=== PATIENT | male | born 1960 | race Caucasian/White ===

== ENCOUNTER 2018-03-17 11:06 | Emergency (ER) | payer OTHER, BC ==
[2018-03-17] MEDS ORDERED: HYDROmorphone 0.5 MG/0.5 ML SYRINGE IVPUSH ONE (11:23)
[2018-03-17] MEDS ORDERED: Cyclobenzaprine 10 MG Tab PO ONE (11:24)
[2018-03-17] MEDS ORDERED: HYDROmorphone 0.5 MG/0.5 ML SYRINGE IM ONE (11:25)
--- NOTE | 2018-03-17 11:30 | EDM.PDOC ---
ED HPI GENERAL MEDICAL PROBLEM - General Chief Complaint: Chest Pain Stated Complaint: CHEST PAIN Time Seen by Provider: 03/17/18 11:18 Source of Information: Reports: Patient History Limitations: Reports: No Limitations - History of Present Illness INITIAL COMMENTS - FREE TEXT/NARRATIVE: Patient is a 58 y/o female who presents to the E.D. complaining of muscle spasms to the left and lateral chest that comes and goes. Patient states the pain came on while working the [employer] line at [employer]. 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 Patient states he lifts routinely 15lbs multiple times a day. States the spasms come and go. Hes had no recent trauma associating the pain. Pain is intermittent comes and goes. He denies fever, sob, n/v, abdominal pain, dysuria, back pain, n/t, or any additional complaints. He has no PMH and currently takes no heart medications. Patient smokes 3/4 ppd. Alcohol use is minimal. Denies rec drug use. Dad has a history of heart disease. Treatments MOTION PICTURE DIRECTOR: Reports: Other (see below) Other Treatments MOTION PICTURE DIRECTOR: none Bilateral Chest Pain Score (Numeric/FACES): 7 - Related Data Allergies Allergy/AdvReac Type Severity Reaction Status Date / Time No Known Allergies Allergy Verified 03/17/18 11:18 Home Meds: Home Meds Cyclobenzaprine [Flexeril] 10 mg PO TID PRN #21 tab 03/17/18 [Rx] ED ROS GENERAL - Review of Systems Review Of Systems: ROS reveals no pertinent complaints other than HPI. ED EXAM, GENERAL - Physical Exam Exam: See Below Exam Limited By: No Limitations General Appearance: Alert, WD/WN, Mild Distress, Other (intermittent spasms to the left/right chestwall. ) Eye Exam: Bilateral Eye: PERRL Ears: Hearing Grossly Normal Nose: Normal Inspection Throat/Mouth: Normal Voice Head: Atraumatic, Normocephalic Neck: Normal Inspection, Supple Respiratory/Chest: No Respiratory Distress, Lungs Clear, Normal Breath Sounds, No Accessory Muscle Use, Chest Non-Tender, Other (With any type of movements and resistance to the upper extremities patient develops spasms to the lateral chest. ) Cardiovascular: Normal Peripheral Pulses, Regular Rate, Rhythm, No Murmur Peripheral Pulses: 4+: Radial (L), Radial (R) GI/Abdominal: Normal Bowel Sounds, Soft, Non-Tender, No Organomegaly, No Distention Back Exam: Normal Inspection Extremities: Normal Inspection, Normal Range of Motion, Non-Tender, No Pedal Edema Neurological: Alert, Oriented, CN II-XII Intact, Normal Cognition, No Motor/ Sensory Deficits Psychiatric: Normal Affect, Normal Mood Skin Exam: Warm, Dry, Intact, Normal Color Course - Vital Signs Last Recorded V/S: Last Vital Signs Temp 98.4 F 03/17/18 11:14 Pulse 68 03/17/18 12:46 Resp 16 03/17/18 12:46 BP 133/86 03/17/18 12:46 Pulse Ox 100 03/17/18 12:46 - Orders/Labs/Meds Meds: Medications Discontinued Medications Generic Name Dose Route Start Last Admin Trade Name Yolanda PRN Reason Stop Dose Admin Cyclobenzaprine HCl 10 mg 03/17/18 11:24 03/17/18 11:35 Flexeril PO 03/17/18 11:25 10 mg ONETIME ONE Administration Hydromorphone HCl 0.5 mg 03/17/18 11:23 Dilaudid IVPUSH 03/17/18 11:24 ONETIME ONE Hydromorphone HCl 0.5 mg 03/17/18 11:25 03/17/18 11:35 Dilaudid IM 03/17/18 11:26 0.5 mg ONETIME ONE Administration - Re-Assessments/Exams Free Text/Narrative Re-Assessment/Exam: On examination patients having intermittent spasming to the chart lateral aspect of the chest bilaterally. This is worsen with any kind resistance on examination to the upper extremities. This came on while at work working in a semireclined rotating left to right lifting 15 pound boxes repeatedly. This progressively got worse since onset. He personally has no history of cardiac disease and/or history of spontaneous pneumothorax. Vital signs are stable. I will order Dilaudid 0.5 mg IM and also Flexeril 10 mg by mouth. CXR: No acute finding noted. Reviewed with Dr. Espino. Final interpretation pending. EKG: Sinus rhythm at rate of 80, pr interval 134, QTc 425. No acute ST changes noted. 03/17/18 12:15 Reassessment, patients states spasms have significantly improved with the above therapies. Will discharge patient home with instructions as documented. Departure - Departure Time of Disposition: 12:28 Disposition: Home, Self-Care 01 Condition: Good Clinical Impression: Acute chest wall pain, Muscle spasm Prescriptions: Cyclobenzaprine [Flexeril] 10 mg PO TID PRN #21 tab PRN Reason: Spasms Instructions: Chest Wall Pain, [id number] Referrals: PCP,Unknown [Ordering Only Provider] - Forms: ED Department Discharge, ED Return to Work/School Form Additional Instructions: Take the flexeril 1 tab three times a day as needed for muscle spasms. May take tylenol and ibuprofen in alternating fashion for pain as well. Refrain from any activities that cause worsening pain. Please follow up with her PCP as needed for reevaluation. Return to the ED if you develop any new or worsening symptoms.
--- NOTE | 2018-03-17 12:52 | CR ---
Chest: Frontal view of the chest was obtained. Comparison: No prior study. Heart size is normal. Tortuous thoracic aorta is seen. Lungs are clear but hyperinflated. Bony structures are grossly intact. Old healed left sided rib fracture is incidentally noted. Impression: 1. Emphysematous change and other incidental findings. Nothing acute is seen. Diagnostic code #2
== END 2018-03-17 12:43 | disposition home or self-care (01) ==
LOC: JD.ED 11:06
DX: M62.838 Other muscle spasm (principal); R07.89 Other chest pain
CPT/HCPCS: 71045; 93005; 96372; 99285; A9270; J1170

== ENCOUNTER 2020-09-14 11:34 | Emergency (ER) | payer SELFPAY ==
[2020-09-14] MEDS ORDERED: Sodium Chloride 0.9% 10 ML Syringe FLUSH PRN (11:35)
--- NOTE | 2020-09-14 12:39 | CT ---
PROCEDURE INFORMATION: Exam: CT Head Without Contrast Exam date and time: 09/14/2020 11:31 AM Age: 60 years old Clinical indication: Weakness, extremity; Left; Additional info: CVA TECHNIQUE: Imaging protocol: Computed tomography of the head without contrast. Other technique: STROKE PROTOCOL was implemented. COMPARISON: No relevant prior studies available. FINDINGS: Brain: No acute brain parenchymal abnormality. No intracranial hemorrhage. No extraaxial fluid collections. Cerebral ventricles: No hydrocephalus. Bones/joints: No calvarial fracture. Paranasal sinuses: The visualized paranasal sinuses are aerated. Mastoid air cells: Minimal right mastoid air cell effusions. The left mastoid air cells are aerated. Soft tissues: No acute soft tissue abnormality. IMPRESSION: No acute intracranial abnormality. ASSESSMENT: ASPECTS ([place] Stroke Program Early CT Score) is 10. Thank you for allowing us to participate in the care of your patient. Dictated and Authenticated by: Nicola Real MD 09/14/2020 12:49 PM Central Time ([place] & [place]) [email or web address]
--- NOTE | 2020-09-14 13:06 | EDM.PDOC ---
ED HPI GENERAL MEDICAL PROBLEM - General Chief Complaint: Neuro Symptoms/Deficits Stated Complaint: [facility] Time Seen by Provider: 09/14/20 11:35 Source of Information: Reports: Patient, EMS, Provider History Limitations: Reports: No Limitations - History of Present Illness INITIAL COMMENTS - FREE TEXT/NARRATIVE: The patient presents by [facility] for stroke like symptoms. The patient said after he woke up at 6am and felt fine. At around 11am he started having numbness to the right side of face. He said it felt like he was at the dentist and got some novocaine. He is at the residential in [facility]. He then tried eating lunch and he said it was hard to chew. He then talked to the nurse and she called 911 to come to the ER for assessment. He says it was his right face that felt numb. When EMS arrived the assessed him and it appeared he had some left arm weakness. That was resolved when he came here. He has no history of stroke or DE. He does have a history of COPD. This has never happened to him before. He quit smoking years ago. Onset: Gradual Duration: Hour(s): Location: Reports: Face Quality: Reports: Other (Numbness) Severity: Mild Improves with: Reports: None Worsens with: Reports: None Associated Symptoms: Reports: No Other Symptoms - Related Data Allergies Allergy/AdvReac Type Severity Reaction Status Date / Time No Known Allergies Allergy Verified 09/14/20 11:47 Home Meds: Home Meds Carboxymethylcellulose Sodium [Artificial Tears] 15 ml OP QID PRN #1 bottle 09/14/20 [Rx] Tiotropium [place] [Spiriva Respimat] 2 inh INH DAILY 09/14/20 [History] hydroCHLOROthiazide [Hydrochlorothiazide] 12.5 mg PO DAILY 09/14/20 [History] predniSONE [Prednisone] 60 mg PO DAILY #21 tablet 09/14/20 [Rx] Past Medical History HEENT History: Reports: Impaired Vision Cardiovascular History: Reports: Hypertension Respiratory History: Reports: COPD - Past Surgical History Musculoskeletal Surgical History: Reports: Other (See Below) Other Musculoskeletal Surgeries/Procedures:: Surgery on torn achilles. Social & Family History - Tobacco Use Tobacco Use Status *Q: Former Tobacco User Used Tobacco, but Quit: Yes Month/Year Tobacco Last Used: 05/15 - Caffeine Use Caffeine Use: Reports: Coffee - Recreational Drug Use Recreational Drug Use: No ED ROS GENERAL - Review of Systems Review Of Systems: See Below Constitutional: Reports: No Symptoms HEENT: Reports: Other (Numbness right side of his face) Respiratory: Reports: No Symptoms Cardiovascular: Reports: No Symptoms Endocrine: Reports: No Symptoms GI/Abdominal: Reports: No Symptoms : Reports: No Symptoms Musculoskeletal: Reports: Other (Mild numbness right face) ED EXAM, NEURO - Physical Exam Exam: See Below Exam Limited By: No Limitations General Appearance: Alert, No Apparent Distress Ears: Normal External Exam Nose: Normal Inspection Head Exam: Atraumatic, Normocephalic Neck: Normal Inspection, Supple, Non-Tender Respiratory/Chest: No Respiratory Distress, Lungs Clear, Normal Breath Sounds Cardiovascular: Regular Rate, Rhythm, No Edema, No Murmur GI/Abdominal: Soft, Non-Tender, No Organomegaly, No Mass Neurological: Alert, No Motor/Sensory Deficits, Oriented x 3 #1 Interpretation EKG Date: 09/14/20 Time: 11:48 Rhythm: NSR Rate (Beats/Min): 84 Sharon: Normal P-Wave: Present QRS: Normal ST-T: Normal QT: Normal Course - Vital Signs Last Recorded V/S: Last Vital Signs Temp 97.4 F 09/14/20 11:42 Pulse 88 09/14/20 11:42 Resp 16 09/14/20 11:42 BP 169/110 H 09/14/20 11:42 Pulse Ox 100 09/14/20 11:42 - Orders/Labs/Meds Orders: Active Orders 24 hr Category Date Time Status Cardiac Monitoring [RC] . DIRECTED Care 09/14/20 11:35 Active EKG Documentation Completion [RC] STAT Care 09/14/20 11:36 Active Peripheral IV Care [RC] . DIRECTED Care 09/14/20 11:36 Active Sodium Chloride 0.9% [Saline Flush] Med 09/14/20 11:35 Active 10 ml FLUSH ASDIRECTED PRN Peripheral IV Insertion Adult [OM.PC] Stat Oth 09/14/20 11:35 Ordered Medication Orders Sodium Chloride (Saline Flush) 10 ml FLUSH ASDIRECTED PRN PRN Reason: Keep Vein Open Last Admin: 09/14/20 11:52 Dose: 10 ml Documented by: LIZ Labs: Laboratory Tests 09/14/20 09/14/20 09/14/20 Range/Units 11:44 11:44 11:44 WBC 8.28 (4.23-9.07) K/mm3 RBC 4.57 L (4.63-6.08) M/mm3 Hgb 14.2 (13.7-17.5) gm/dl Hct 43.0 (40.1-51.0) % MCV 94.1 H (79.0-92.2) fl MCH 31.1 (25.7-32.2) pg MCHC 33.0 (32.2-35.5) g/dl RDW Std Deviation 42.9 (35.1-43.9) fL Plt Count 269 (163-337) K/mm3 MPV 8.3 L (9.4-12.3) fl Neut % (Auto) 61.7 (34.0-67.9) % Lymph % (Auto) 26.3 (21.8-53.1) % [place] % (Auto) 8.1 (5.3-12.2) % Eos % (Auto) 3.1 (0.8-7.0) Baso % (Auto) 0.4 (0.1-1.2) % Neut # (Auto) 5.11 (1.78-5.38) K/mm3 Lymph # (Auto) 2.18 (1.32-3.57) K/mm3 [place] # (Auto) 0.67 (0.30-0.82) K/mm3 Eos # (Auto) 0.26 (0.04-0.54) K/mm3 Baso # (Auto) 0.03 (0.01-0.08) K/mm3 PT 10.9 (9.7-12.0) SECONDS INR 1.02 APTT 28.2 (21.7-31.4) SECONDS Sodium 141 (136-145) mEq/L Potassium 3.4 L (3.5-5.1) mEq/L Chloride 103 (98-107) mEq/L Carbon Dioxide 30 (21-32) mEq/L Anion Gap 11.4 (5-15) BUN 16 (7-18) mg/dL Creatinine 1.1 (0.7-1.3) mg/dL Est Cr Clr Drug Dosing 67.60 mL/min Estimated GFR (MDRD) > 60 (>60) mL/min BUN/Creatinine Ratio 14.5 (14-18) Glucose 109 H (74-106) mg/dL Calcium 9.2 (8.5-10.1) mg/dL Magnesium 1.7 L (1.8-2.4) mg/dl Total Bilirubin 0.3 (0.2-1.0) mg/dL AST 8 L (15-37) U/L ALT 27 (16-63) U/L Alkaline Phosphatase 90 (46-116) U/L Troponin I < 0.017 (0.00-0.056) ng/mL Total Protein 7.0 (6.4-8.2) g/dl Albumin 3.5 (3.4-5.0) g/dl Globulin 3.5 gm/dL Albumin/Globulin Ratio 1.0 (1-2) Meds: Medications Generic Name Dose Route Start Last Admin Trade Name Freq PRN Reason Stop Dose Admin Sodium Chloride 10 ml 09/14/20 11:35 09/14/20 11:52 Saline Flush FLUSH 10 ml ASDIRECTED PRN Administration Keep Vein Open - Re-Assessments/Exams Free Text/Narrative Re-Assessment/Exam: 09/14/20 13:10 A stroke alert was called. His last time known well was 11am. 09/14/20 13:[address] of his head, EKG, and labs. His EKG shows a NSR with no acute changes. The CT of his head shows no acute intracranial abnormality. His labs look good. I was able to get a MRI of his head ordered. 09/14/20 14:19 The MRI was totally normal. 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 I will need to get him on prednisone and something to protect his eye. Departure - Departure Time of Disposition: 14:25 Disposition: Home, Self-Care 01 Condition: Good Clinical Impression: Ivy's palsy - Discharge Information *PRESCRIPTION DRUG MONITORING PROGRAM REVIEWED*: Not Applicable *COPY OF PRESCRIPTION DRUG MONITORING REPORT IN PATIENT DELMY: Not Applicable Prescriptions: predniSONE [Prednisone] 60 mg PO DAILY #21 tablet Referrals: Gavi Wharton PA-C [Primary Care Provider] - 1 Week Forms: ED Department Discharge Additional Instructions: Antonio the prednisone 60mg daily for 7 days. Use the artificial tears 4 times per day and wear an eye patch at night to protect your eye. Please return if you are worse. Sepsis Event Note (ED) - Evaluation Sepsis Screening Result: No Definite Risk - Focused Exam Vital Signs: Vital Signs Temp Pulse Resp BP Pulse Ox 09/14/20 11:42 97.4 F 88 16 169/110 H 100 - My Orders Last 24 Hours: My Active Orders 09/14/20 11:35 Cardiac Monitoring [RC] . DIRECTED Sodium Chloride 0.9% [Saline Flush] 10 ml FLUSH ASDIRECTED PRN Peripheral IV Insertion Adult [OM.PC] Stat 09/14/20 11:36 EKG Documentation Completion [RC] STAT Peripheral IV Care [RC] . DIRECTED - Assessment/Plan Last 24 Hours: My Active Orders 09/14/20 11:35 Cardiac Monitoring [RC] . DIRECTED Sodium Chloride 0.9% [Saline Flush] 10 ml FLUSH ASDIRECTED PRN Peripheral IV Insertion Adult [OM.PC] Stat 09/14/20 11:36 EKG Documentation Completion [RC] STAT Peripheral IV Care [RC] . DIRECTED
--- NOTE | 2020-09-14 14:09 | MR ---
PROCEDURE INFORMATION: Exam: MR Head Without Contrast Exam date and time: 09/14/2020 1:19 PM Age: 60 years old Clinical indication: Other: Left facial weakness and left arm weakness. TECHNIQUE: Imaging protocol: MR of the head without contrast. COMPARISON: CT Head wo Cont 09/14/2020 11:31 AM FINDINGS: Brain: Normal. No acute infarct. No hemorrhage. No significant white matter disease. No edema. Cerebral ventricles: Normal. No ventriculomegaly. Bones/joints: Unremarkable. Paranasal sinuses: Normal as visualized. No acute sinusitis. Mastoid air cells: Normal as visualized. No mastoid effusion. Orbits: Unremarkable. Soft tissues: Unremarkable. IMPRESSION: No acute findings. Thank you for allowing us to participate in the care of your patient. Dictated and Authenticated by: Chris Shafer MD 09/14/2020 3:08 PM Central Time ([place] & [place]) [email or web address]
== END 2020-09-14 14:45 | disposition home or self-care (01) ==
LOC: JD.ED 11:34
DX: G51.0 Bell's palsy (principal); I10 Essential (primary) hypertension; J44.9 Chronic obstructive pulmonary disease, unspecified; Z79.899 Other long term (current) drug therapy; Z87.891 Personal history of nicotine dependence
CPT/HCPCS: 36415; 70450; 70450-26; 70551; 70551-26; 80053; 83735; 84484; 85025; 85610; 85730; 93005; 93010; 99284; 99285-25

== ENCOUNTER 2023-12-22 08:32 | Emergency (ER) | payer OTHER ==
[2023-12-22] MEDS: Morphine 4 MG/ML Syringe IVPUSH ONE (10:05)
[2023-12-22] MEDS: Sodium Chloride 0.9% 10 ML Syringe FLUSH PRN (10:06)
[2023-12-22 10:07] LABS: BASOPHILS ABSOLUTE AUTO 0.1 K/mm3 (0.0-0.2); BASOPHILS PERCENT AUTO 0.6 % (0.0-1.0); EOSINOPHILS ABSOLUTE AUTO 0.2 K/mm3 (0.0-0.4); EOSINOPHILS PERCENT AUTO 2.8 % (0.0-6.0); HEMATOCRIT 41.6 % (42.0-52.0); HEMOGLOBIN 13.5 gm/dl (14.0-18.0); IMMATURE GRAN ABSOLUTE AUTO 0.04 K/mm3 (0.00-0.05); IMMATURE GRAN PERCENT AUTO 0.5 % (0.0-0.4); LYMPHOCYTES PERCENT AUTO 25.1 % (24.0-44.0); MEAN CORPUSCULAR HEMOGLOBIN 30.6 pg (28.0-32.0); MEAN CORPUSCULAR HGB CONC 32.5 g/dl (32.0-36.0); MEAN CORPUSCULAR VOLUME 94.3 fl (83.0-99.0); MEAN PLATELET VOLUME 8.2 fl (9.4-12.4); MONOCYTES ABSOLUTE AUTO 0.6 K/mm3 (0.0-0.8); MONOCYTES PERCENT AUTO 7.3 % (0.0-8.0); NEUTROPHILS PERCENT AUTO 63.7 % (41.0-71.0); PLATELET COUNT,PLT 252 K/mm3 (150-400); RED BLOOD CELL COUNT 4.41 M/mm3 (4.52-5.90)
[2023-12-22 10:22] LABS: INR 0.96; PROTHROMBIN TIME 10.3 SECONDS (9.7-12.0)
[2023-12-22 10:24] LABS: PTT,PARTIAL THROMBOPLSTIN TIME 28.6 SECONDS (21.7-31.4)
[2023-12-22 10:47] LABS: A/G RATIO 0.9 (1-2); ALBUMIN 3.4 g/dl (3.4-5.0); ANION GAP 13.1 (5-15); BILIRUBIN TOTAL 0.4 mg/dL (0.2-1.0); BUN/CREATININE RATIO 11.1 (14-18); C-REACTIVE PROTEIN 1.65 mg/dL (<0.30); CALCIUM 9.1 mg/dL (8.5-10.1); CREATININE 0.9 mg/dL (0.7-1.3); EST CRCL DRUG DOSING (CG) 76.8 mL/min; MAGNESIUM 1.7 mg/dL (1.8-2.4); POTASSIUM,K 4.1 mEq/L (3.5-5.1); PROTEIN TOTAL,TP 7.1 g/dl (6.4-8.2)
[2023-12-22] MEDS: Iopamidol 612 MG/ML 100 ML Bottle IVPUSH ONE (11:06)
[2023-12-22] MEDS ORDERED: cefTRIAXone 1 GM in Sodium Chloride 0.9% 100 ML IV ONE (12:10)
[2023-12-22] MEDS ORDERED: Clindamycin Phosphate in D5W 900 MG in Premix Bag 1 BAG IV ONE (12:12)
== END 2023-12-22 13:11 | disposition home or self-care (01) ==
LOC: JD.ED 08:32
DX: K11.21 Acute sialoadenitis (principal); I10 Essential (primary) hypertension; J44.9 Chronic obstructive pulmonary disease, unspecified; Z87.891 Personal history of nicotine dependence; Z79.899 Other long term (current) drug therapy
CPT/HCPCS: 36415; 70491; 80053; 83735; 85025; 85610; 85730; 86140; 96374; 99284; J2270; J3490; Q9967

== ENCOUNTER 2024-10-04 11:28 | Emergency (ER) | payer OTHER ==
[2024-10-04 12:01] LABS: BASOPHILS PERCENT AUTO 0.4 % (0.0-1.0); EOSINOPHILS ABSOLUTE AUTO 0.1 K/mm3 (0.0-0.4); EOSINOPHILS PERCENT AUTO 1.8 % (0.0-6.0); HEMATOCRIT 38.1 % (42.0-52.0); IMMATURE GRAN ABSOLUTE AUTO 0.33 K/mm3 (0.00-0.05); IMMATURE GRAN PERCENT AUTO 5.9 % (0.0-0.4); LYMPHOCYTES ABSOLUTE AUTO 0.8 K/mm3 (1.0-4.8); LYMPHOCYTES PERCENT AUTO 13.6 % (24.0-44.0); MEAN CORPUSCULAR HEMOGLOBIN 31.9 pg (28.0-32.0); MEAN CORPUSCULAR HGB CONC 33.6 g/dl (32.0-36.0); MEAN PLATELET VOLUME 8.4 fl (9.4-12.4); MONOCYTES ABSOLUTE AUTO 0.1 K/mm3 (0.0-0.8); MONOCYTES PERCENT AUTO 0.9 % (0.0-8.0); NEUTROPHILS ABSOLUTE AUTO 4.3 K/mm3 (1.8-7.7); NEUTROPHILS PERCENT AUTO 77.4 % (41.0-71.0); NRBC ABSOLUTE 0.02 (0.00-0.02); NRBC PERCENT 0.4 % (0.0-0.2); RED BLOOD CELL COUNT 4.01 M/mm3 (4.52-5.90); WHITE BLOOD CELL COUNT,WBC 5.59 K/mm3 (3.9-11.3)
[2024-10-04 12:08] LABS: HEMOGLOBIN 12.8 gm/dl (14.0-18.0); PLATELET COUNT,PLT 158 K/mm3 (150-400)
[2024-10-04 12:25] LABS: ALBUMIN 3.3 g/dl (3.4-5.0); ANION GAP 13.7 (5-15); BILIRUBIN TOTAL 3.2 mg/dL (0.2-1.0); BUN/CREATININE RATIO 15.6 (14-18); CALCIUM 8.9 mg/dL (8.5-10.1); CREATININE 0.9 mg/dL (0.7-1.3); EST CRCL DRUG DOSING (CG) 75.46 mL/min; PROTEIN TOTAL,TP 6.7 g/dl (6.4-8.2)
[2024-10-04 12:32] LABS: POTASSIUM,K 3.7 mEq/L (3.5-5.1)
[2024-10-04 13:21] LABS: SLIDE REVIEW ABNORMAL SMEAR
[2024-10-04] MEDS: Ketorolac 30 MG/ML SDV IVPUSH ONE (13:40)
[2024-10-04] MEDS: Cyclobenzaprine 10 MG Tab PO ONE (13:41)
== END 2024-10-04 14:25 | disposition home or self-care (01) ==
LOC: JD.ED 11:28
DX: M62.830 Muscle spasm of back (principal); E80.6 Other disorders of bilirubin metabolism; I10 Essential (primary) hypertension; J44.89 Other specified chronic obstructive pulmonary disease; Z86.16 Personal history of COVID-19; Z87.891 Personal history of nicotine dependence; Z79.51 Long term (current) use of inhaled steroids; Z79.899 Other long term (current) drug therapy
CPT/HCPCS: 36415; 71045; 80053; 84484; 85025; 93005; 96374; 99285; A9270; J1885

== ENCOUNTER 2024-10-11 15:29 | Emergency (ER) | payer OTHER ==
[2024-10-11] MEDS ORDERED: Sodium Chloride 0.9% 10 ML Syringe FLUSH PRN (16:39)
[2024-10-11 16:48] LABS: BASOPHILS PERCENT AUTO 0.3 % (0.0-1.0); EOSINOPHILS ABSOLUTE AUTO 0.3 K/mm3 (0.0-0.4); EOSINOPHILS PERCENT AUTO 2.6 % (0.0-6.0); HEMATOCRIT 30.9 % (42.0-52.0); HEMOGLOBIN 10.1 gm/dl (14.0-18.0); IMMATURE GRAN ABSOLUTE AUTO 0.31 K/mm3 (0.00-0.05); IMMATURE GRAN PERCENT AUTO 2.8 % (0.0-0.4); LYMPHOCYTES ABSOLUTE AUTO 0.8 K/mm3 (1.0-4.8); LYMPHOCYTES PERCENT AUTO 7.5 % (24.0-44.0); MEAN CORPUSCULAR HEMOGLOBIN 31.2 pg (28.0-32.0); MEAN CORPUSCULAR HGB CONC 32.7 g/dl (32.0-36.0); MEAN CORPUSCULAR VOLUME 95.4 fl (83.0-99.0); MEAN PLATELET VOLUME 8.7 fl (9.4-12.4); MONOCYTES ABSOLUTE AUTO 0.3 K/mm3 (0.0-0.8); MONOCYTES PERCENT AUTO 2.5 % (0.0-8.0); NEUTROPHILS ABSOLUTE AUTO 9.3 K/mm3 (1.8-7.7); NEUTROPHILS PERCENT AUTO 84.3 % (41.0-71.0); PLATELET COUNT,PLT 246 K/mm3 (150-400); RED BLOOD CELL COUNT 3.24 M/mm3 (4.52-5.90); WHITE BLOOD CELL COUNT,WBC 10.96 K/mm3 (3.9-11.3)
[2024-10-11] MEDS: Albuterol/Ipratropium 3.0-0.5 MG/3 ML Neb Soln NEB ONE (16:57)
[2024-10-11] MEDS: methylPREDNISolone Sodium Succinate 125 MG/2 ML SDV IVPUSH ONE (17:01)
[2024-10-11 17:07] LABS: A/G RATIO 0.7 (1-2); ALBUMIN 2.6 g/dl (3.4-5.0); CALCIUM 7.5 mg/dL (8.5-10.1); PROTEIN TOTAL,TP 6.2 g/dl (6.4-8.2)
[2024-10-11 17:17] LABS: BASE EXCESS ARTERIAL -14.2 (-2-2.0); BICARBONATE,ARTERIAL 15.5 meq/L (22.0-26.0); O2 SATURATION ARTERIAL 96.1 % (96.0-97.0); PCO2 ARTERIAL 55.4 mmHg (35.0-45.0)
[2024-10-11 17:19] LABS: BUN/CREATININE RATIO 7.2 (14-18); EST CRCL DRUG DOSING (CG) 4.52 mL/min
[2024-10-11 17:21] LABS: CREATININE 15.1 mg/dL (0.7-1.3)
[2024-10-11] MEDS: Sodium Chloride 0.9% 1,000 ML IV ONE (18:38)
[2024-10-11] MEDS: Sodium Chloride 0.9% 250 ML IV ONE (18:46)
== END 2024-10-11 21:27 ==
LOC: JD.ED 15:29
DX: J44.1 Chronic obstructive pulmonary disease with (acute) exacerbation (principal); I11.0 Hypertensive heart disease with heart failure; I50.9 Heart failure, unspecified; N17.9 Acute kidney failure, unspecified; Z86.16 Personal history of COVID-19; Z79.51 Long term (current) use of inhaled steroids; Z79.899 Other long term (current) drug therapy
CPT/HCPCS: 36415; 36600; 71045; 80053; 82803; 83880; 84484; 85025; 93005; 94640; 94660; 96361; 96374; 99285; J2919; J7030; 93010; J7620-GY